=== PATIENT | female | born 1970 | race Caucasian/White ===

== ENCOUNTER → 2016-06-30 | Outpatient (CLI) | payer BC ==
--- NOTE | 2016-07-03 07:37 | MM ---
Reason for exam: screening (asymptomatic). Last mammogram was performed 1 year and 11 months ago. History: Took hormonal contraceptives for 6 years. Taking other hormone. Physical Findings: A clinical breast exam by your physician is recommended on an annual basis and results should be correlated with mammographic findings. MG 3D Screening Mammo W/Cad Bilateral CC and MLO view(s) were taken. Prior study comparison: August 07, 2014, bilateral MG screening mammo w CAD. The breast tissue is heterogeneously dense. This may lower the sensitivity of mammography. Finding: There are typically benign round calcifications in both breasts. There is no discrete abnormality. ASSESSMENT: Benign, BI-RAD 2 RECOMMENDATION: Routine screening mammogram of both breasts in 1 year.
== END | disposition home or self-care (01) ==
LOC: RADMAMWWP 08:58
PROVIDERS: ATTEND Obstetrics & Gynecology
DX: Z12.31 Encounter for screening mammogram for malignant neoplasm of breast (principal)
CPT/HCPCS: 77052; 77063; G0202

== ENCOUNTER → 2016-08-25 | Outpatient (CLI) | payer BC ==
[2016-08-25 10:58] LABS: % Iron Saturation 28.1 % (20-50)
== END | disposition home or self-care (01) ==
LOC: LABWHC1 07:31
PROVIDERS: ATTEND Clinical Nurse Specialist Women's Health
DX: R53.83 Other fatigue (principal); Z86.39 Personal history of other endocrine, nutritional and metabolic disease
CPT/HCPCS: 36415; 82627; 82728; 83540; 83550; 84439; 84443; 84482

== ENCOUNTER → 2016-08-28 | Outpatient (CLI) | payer BC | LOC: LABWHC1 07:45 | PROVIDERS: ATTEND Clinical Nurse Specialist Women's Health | DX: E03.9 Hypothyroidism, unspecified (principal); Z87.898 Personal history of other specified conditions | CPT/HCPCS: 36415; 84482 ==

== ENCOUNTER → 2017-08-02 | Outpatient (CLI) | payer BC ==
--- NOTE | 2017-08-03 10:58 | MM ---
Reason for exam: screening (asymptomatic). Last mammogram was performed 1 year and 1 month ago. History: Took hormonal contraceptives for 6 years. Taking other hormone. Physical Findings: A clinical breast exam by your physician is recommended on an annual basis and results should be correlated with mammographic findings. MG 3D Screening Mammo W/Cad Bilateral CC and MLO view(s) were taken. Prior study comparison: June 30, 2016, bilateral MG 3d screening mammo w/cad. August 07, 2014, bilateral MG screening mammo w CAD. The breast tissue is heterogeneously dense. This may lower the sensitivity of mammography. Finding: There is a 5 mm circumscribed round mass located 5 cm from the nipple in the middle position of the left breast. New finding since June 30, 2016 and August 07, 2014. ASSESSMENT: Incomplete: need additional imaging evaluation, BI-RAD 0 RECOMMENDATION: Ultrasound of the left breast. [facility] will attempt to contact patient to return for ultrasound.
== END | disposition home or self-care (01) ==
LOC: RADMAMWWP 16:25
PROVIDERS: ATTEND Obstetrics & Gynecology
DX: Z12.31 Encounter for screening mammogram for malignant neoplasm of breast (principal)
CPT/HCPCS: 77063; 77067

== ENCOUNTER → 2017-08-06 | Outpatient (CLI) | payer BC ==
--- NOTE | 2017-08-07 07:55 | USB ---
Reason for exam: additional evaluation requested from abnormal screening. History: Took hormonal contraceptives for 6 years. Taking other hormone. Physical Findings: Nurse did not find any significant physical abnormalities on exam. US Breast Workup Limited LT Left breast ultrasound demonstrates a 6 x 4 x 4mm oval, mixed lesion at 11 o'clock. These results were verbally communicated with the patient and result sheet given to the patient on 08/06/17. ASSESSMENT: Probably benign, BI-RAD 3 RECOMMENDATION: Follow-up diagnostic mammogram and ultrasound of the left breast in 6 months.
== END | disposition home or self-care (01) ==
LOC: RADUSWWP 15:33
PROVIDERS: ATTEND Obstetrics & Gynecology
DX: R92.8 Other abnormal and inconclusive findings on diagnostic imaging of breast (principal)

== ENCOUNTER → 2018-03-11 | Outpatient (CLI) | payer BC ==
--- NOTE | 2018-03-11 10:43 | MM ---
Reason for exam: follow-up at short interval from prior study. Last mammogram was performed 7 months ago. History: Took hormonal contraceptives for 6 years. Taking other hormone. Physical Findings: Nurse did not find any significant physical abnormalities on exam. MG 3D Diag Mammo W/Cad LT CC and MLO view(s) were taken of the left breast. Prior study comparison: August 02, 2017, bilateral MG 3d screening mammo w/cad. June 30, 2016, bilateral MG 3d screening mammo w/cad. The breast tissue is heterogeneously dense. This may lower the sensitivity of mammography. The isodense 7mm circumscribed asymmetric density central left CC view just medial to the retroareolar plane is stable for 6 months. These results were verbally communicated with the patient and result sheet given to the patient on 03/11/18. ASSESSMENT: Incomplete: need additional imaging evaluation, BI-RAD 0 RECOMMENDATION: Ultrasound of the left breast.
--- NOTE | 2018-03-11 10:47 | USB ---
Reason for exam: additional evaluation requested from abnormal screening. History: Took hormonal contraceptives for 6 years. Taking other hormone. US Breast LT Left complete breast ultrasound includes all four quadrants, the retroareolar region and axilla. Finding demonstrates no cystic or solid lesion seen. Additional 6 month follow up mammogram recommended. These results were verbally communicated with the patient and result sheet given to the patient on 03/11/18. ASSESSMENT: Probably benign, BI-RAD 3 RECOMMENDATION: Follow-up diagnostic mammogram of both breasts in 6 months. (total 1 year follow up)
== END | disposition home or self-care (01) ==
LOC: RADMAMWWP 07:27
PROVIDERS: ATTEND Obstetrics & Gynecology
DX: R92.8 Other abnormal and inconclusive findings on diagnostic imaging of breast (principal)
CPT/HCPCS: 77061; 77065

== ENCOUNTER → 2018-09-05 | Outpatient (CLI) | payer BC ==
[2018-09-05 17:37] LABS: T4, Free (Free Thyroxine) 1.1 ng/dL (0.80-1.80)
== END | disposition home or self-care (01) ==
LOC: LABWHC1 07:55
PROVIDERS: ATTEND Clinical Nurse Specialist Women's Health
DX: D64.9 Anemia, unspecified (principal); E03.9 Hypothyroidism, unspecified
CPT/HCPCS: 36415; 82728; 84439; 84481; 84482

== ENCOUNTER → 2019-02-06 | Outpatient (CLI) | payer BC ==
--- NOTE | 2019-02-06 09:17 | MM ---
Reason for exam: follow-up at short interval from prior study. Last mammogram was performed 11 months ago. History: Took hormonal contraceptives for 6 years. Taking other hormone. Physical Findings: Nurse did not find any significant physical abnormalities on exam. MG 3D Diag Mammo W/Cad LULY Bilateral CC and MLO view(s) were taken. ML, spot compression CC, and spot compression MLO view(s) were taken of the right breast. Prior study comparison: March 11, 2018, left breast MG 3d diag mammo w/cad LT. August 02, 2017, bilateral MG 3d screening mammo w/cad. The breast tissue is heterogeneously dense. This may lower the sensitivity of mammography. There are benign appearing bilateral calcifications. Right upper outer quadrant focal asymmetry at middle depth improves on spot CC and true lateral but subtly persists on spot MLO 7-8cm from nipple. Left medial asymmetry is stable. These results were verbally communicated with the patient and result sheet given to the patient on 02/06/19. ASSESSMENT: Incomplete: need additional imaging evaluation, BI-RAD 0 RECOMMENDATION: Ultrasound of the right breast.
--- NOTE | 2019-02-06 09:20 | USB ---
Reason for exam: additional evaluation requested from abnormal screening. History: Took hormonal contraceptives for 6 years. Taking other hormone. US Breast Limited RT Right limited breast ultrasound including focal area of concern, retroareolar and axilla demonstrates a 0.3 x 0.3 x 0.4cm lesion too small to characterize at 11 o'clock, correlates to mammographic finding embedded in dense breast tissue. These results were verbally communicated with the patient and result sheet given to the patient on 02/06/19. ASSESSMENT: Suspicious, BI-RAD 4 RECOMMENDATION: Ultrasound core biopsy of the right breast. Called Dr. Vieira with mammographic findings and has scheduled an appointment for the patient for 02/26/19 at 11:[address] Spring. Biopsy scheduled for 02/19/19 at 12:20. PRELIMINARY REPORT CALLED AND FAXED TO DR. SPRING ON 02/06/19.
== END | disposition home or self-care (01) ==
LOC: RADMAMWWP 07:03
PROVIDERS: ATTEND Surgery
DX: R92.8 Other abnormal and inconclusive findings on diagnostic imaging of breast (principal)
CPT/HCPCS: 77062; 77066

== ENCOUNTER → 2019-02-19 | Day surgery (SDC) | payer BC ==
[2019-02-19 10:41] VITALS: BMI 29.8
[2019-02-19 12:22] VITALS: BP 123/81; PULSE 67; RESP 16; TEMP 98.7
--- NOTE | 2019-02-19 20:49 | USB ---
EXAMINATION TYPE: US biopsy breast VAD RT DATE OF EXAM: 02/19/2019 CLINICAL HISTORY: A. TECHNIQUE: Ultrasound guided core biopsy of breast. COMPARISON: NONE FINDINGS: The procedure of ultrasound guided core biopsy was explained to the patient. Benefits, alt ernatives, and risks were discussed. An informed consent was then obtained. A timeout was performed. The patient was placed in supine positioning for imaging and for the procedure. The overlying skin w as prepped and draped in usual sterile fashion. Lidocaine was used as anesthetic into the skin and s ubcutaneous tissue up to area of concern in the right breast. A small skin syed was made with surgic al scalpel. Under ultrasound guidance, a 12-gauge vacuum assisted biopsy gun device was used to obtain several co re samples. Following this, a biopsy clip was left in lesion. The patient tolerated the procedure well without any immediate complication. Post procedure mammogram: Ribbon clip is within the 12:00 position right breast IMPRESSION: 1. Successful ultrasound-guided core biopsy right breast. Recommendations: 1. Recommendations are pending pathology results.
== END ==
LOC: RADUSWWP 10:07
PROVIDERS: ATTEND Surgery
DX: N60.11 Diffuse cystic mastopathy of right breast (principal); N60.21 Fibroadenosis of right breast; R92.8 Other abnormal and inconclusive findings on diagnostic imaging of breast; Z88.2 Allergy status to sulfonamides
CPT/HCPCS: 88305; 77065; 19083; A4648; J2001

== ENCOUNTER → 2019-02-27 | Outpatient (CLI) | payer BC ==
[2019-02-27 07:30] VITALS: BP 128/80; PULSE 99; RESP 18; TEMP 98.2; BMI 29.8
--- NOTE | 2019-02-27 08:03 | P.GSHP ---
History of Present Illness H&P Date: 02/27/19 Chief Complaint: abnormal mammogram Berry is a 48-year-old [place] [address]. This was bilateral and it was noted in the right upper outer quadrant there was some focal asymmetry. She subsequently underwent an ultrasound which revealed a 0.3 x 0.4 cm lesion too small to characterize. Ultrasound core biopsy was recommended. The patient underwent an ultrasound-guided core biopsy of this area and 820 819. This was felt to be successful and pathology revealed fibrocystic changes with a portion of cyst wall. This and has had no complications following the biopsy. She drinks coffee 4 cups/day. She does drink other caffeinated beverages. She eats chocolate frequently. She does not smoke and is not exposed to secondhand smoke. Family History: mother: colon cancer at 65 maternal grandmother: uterine and rectal cancer sister: at 52 of heart disease Hormonal History: menarche: 14 breast fed: yes, age at first : 28 periods: irregular BCP: 6 years hormones: none Past surgical history: 1. Cyst on the wrist and knee Medical history: 1. Hypothyroid 2. GI gluten free diet Social History: smoke: none alcohol: rare drugs: none - Constitutional Constitutional: Reports sweats - EENT Eyes: denies blurred vision, denies pain Ears: deny: decreased hearing, tinnitus Ears, nose, mouth and throat: Denies headache, Denies sore throat - Breasts Breasts: bilateral: as per HPI - Cardiovascular Cardiovascular: Denies chest pain, Denies shortness of breath - Respiratory Respiratory: Denies cough, Denies 7 - Gastrointestinal Comment: gluten free diet - Genitourinary (Female) Genitourinary: Denies dysuria, Denies hematuria - Menstruation Menstruation: Reports menses variable - Musculoskeletal Musculoskeletal: Denies myalgias - Integumentary Integumentary: Denies pruritus, Denies rash - Neurological Neurological: Denies numbness, Denies weakness - Psychiatric Psychiatric: Denies anxiety, Denies depression - Endocrine Comment: hypothyroid Endocrine: Reports fatigue, Reports weight change - Hematologic/Lymphatic Comment: none - Allergic/Immunologic Allergic/Immunologic: Reports as per HPI, Reports seasonal allergies Past Medical History Past Medical History: GERD/Reflux, Thyroid Disorder History of Any Multi-Drug Resistant Organisms: None Reported Past Surgical History: No Surgical Hx Reported Additional Past Surgical History / Comment(s): cyst on right wrist and cyst on right knee removed as an adolescent Past Anesthesia/Blood Transfusion Reactions: No Reported Reaction Past Psychological History: No Psychological Hx Reported Additional Psychological History / Comment(s): pt very anxious about procedure Smoking Status: Never smoker Past Alcohol Use History: None Reported Past Drug Use History: None Reported - Past Family History Father Additional Family Medical History / Comment(s): "past from heart issues" Mother Family Medical History: Cancer Additional Family Medical History / Comment(s): "past from colon cancer" Sister(s) Additional Family Medical History / Comment(s): "past from heart issues" Medications and Allergies Home Medications Medication Instructions Recorded Confirmed Type Thyroid,Pork [[employer]inator Thyroid] 60 mg PO HS 02/07/19 02/27/19 History Thyroid,Pork [[employer] Coordinator Thyroid] 90 mg PO QAM 02/07/19 02/27/19 History Allergies Allergy/AdvReac Type Severity Reaction Status Date / Time sulfamethoxazole AdvReac Abdominal Verified 02/27/19 07:20 [From Bactrim] Pain trimethoprim [From Bactrim] AdvReac Abdominal Verified 02/27/19 07:20 Pain Surgical - Exam Vital Signs Temp Pulse Resp BP Pulse Ox 98.2 F 99 18 128/80 98 02/27/19 07:21 02/27/19 07:21 02/27/19 07:21 02/27/19 07:21 02/27/19 07:21 BMI 29.9 - General well developed, well nourished, no distress - Eyes normal ocular movement - ENT no hearing loss, no congestion - Neck no masses, trachea midline - Respiratory normal respiratory effort, clear to auscultation - Cardiovascular Rhythm: regular Heart Sounds: normal: S1, S2 - Abdomen Abdomen: soft, non tender, no guarding, no rigid, no rebound - Integumentary no rash, no abnormal pigmentation - Neurologic no disoriented, no combative - Musculoskeletal normal gait, normal posture - Psychiatric oriented to time, oriented to person, oriented to place, speech is normal, memory intact Breast examination: Right breast: Multi-positional exam reveals some ecchymosis and in increased nodularity near the area where she had a core biopsy this is most likely consistent with a hematoma is approximately 1.5 x 1 cm in size it is tender to palpation Right axilla: No adenopathy of concern Under the right breast appears to be a small amount of fungal infection Left breast: multi- positional exam no dominant masses or nodules of concern, fibrocystic changes Left axilla: No adenopathy of concern, some mild skin excoriation probable fungal in nature Results Mammogram and ultrasound results reviewed Assessment and Plan Assessment: Impression: 1. Abnormal mammogram right breast 2. Abnormal ultrasound right breast 3. Fibrocystic breast changes 4. Nodule right breast most likely hematoma 5. Skin changes probable fungal infection under right breast and left axilla 6. Hypothyroid 7. Reflux 8. Gluten intolerance Plan: 1. Repeat right breast mammogram and ultrasound in 6 months 2. Repeat right breast exam in 6 months to assure that hematoma is resolving 3. Nystatin for fungal infection 4. Medical management of medical conditions CC: Dr. Vieira
== END | disposition home or self-care (01) ==
LOC: WWCWWP 07:07
PROVIDERS: ATTEND Surgery
DX: Z53.9 Procedure and treatment not carried out, unspecified reason (principal)

== ENCOUNTER → 2019-04-04 | Outpatient (CLI) | payer BC ==
[2019-04-04 14:44] VITALS: BP 117/78; PULSE 71; RESP 16; TEMP 98.2; BMI 29.0
--- NOTE | 2019-04-04 15:13 | P.PN ---
Subjective Progress Note Date: 04/04/19 Berry is a 48-year-old [place] [address]. This was bilateral and it was noted in the right upper outer quadrant there was some focal asymmetry. She subsequently underwent an ultrasound which revealed a 0.3 x 0.4 cm lesion too small to characterize. Ultrasound core biopsy was recommended. The patient underwent an ultrasound-guided core biopsy of this area and 820 819. This was felt to be successful and pathology revealed fibrocystic changes with a portion of cyst wall. This and has had no complications following the biopsy. She drinks coffee 4 cups/day. She does drink other caffeinated beverages. She eats chocolate frequently. She does not smoke and is not exposed to secondhand smoke. [place] [address]. This was felt to be successful and pathology revealed fibrocystic changes with a portion of cyst wall. Postprocedure she developed a hematoma however the patient states that this is decreased at this time. Under postoperative visit she was also noted to have it was believed to be fungal infection under her breast. This has resolved with nystatin usage. She has no complaints related to the area at this time. Family History: mother: colon cancer at 65 maternal grandmother: uterine and rectal cancer sister: at 52 of heart disease Hormonal History: menarche: 14 breast fed: yes, age at first : 28 periods: irregular BCP: 6 years hormones: none Past surgical history: 1. Cyst on the wrist and knee Medical history: 1. Hypothyroid 2. GI gluten free diet Social History: smoke: none alcohol: rare drugs: none - Constitutional Constitutional: Reports sweats - EENT Eyes: denies blurred vision, denies pain Ears: deny: decreased hearing, tinnitus Ears, nose, mouth and throat: Denies headache, Denies sore throat - Breasts Breasts: bilateral: as per HPI - Cardiovascular Cardiovascular: Denies chest pain, Denies shortness of breath - Respiratory Respiratory: Denies cough, Denies 7 - Gastrointestinal Comment: gluten free diet - Genitourinary (Female) Genitourinary: Denies dysuria, Denies hematuria - Menstruation Menstruation: Reports menses variable - Musculoskeletal Musculoskeletal: Denies myalgias - Integumentary Integumentary: Denies pruritus, Denies rash - Neurological Neurological: Denies numbness, Denies weakness - Psychiatric Psychiatric: Denies anxiety, Denies depression - Endocrine Comment: hypothyroid Endocrine: Reports fatigue, Reports weight change - Hematologic/Lymphatic Comment: none - Allergic/Immunologic Allergic/Immunologic: Reports as per HPI, Reports seasonal allergies Past Medical History Past Medical History: GERD/Reflux, Thyroid Disorder History of Any Multi-Drug Resistant Organisms: None Reported Past Surgical History: No Surgical Hx Reported Additional Past Surgical History / Comment(s): cyst on right wrist and cyst on right knee removed as an adolescent Past Anesthesia/Blood Transfusion Reactions: No Reported Reaction Past Psychological History: No Psychological Hx Reported Additional Psychological History / Comment(s): pt very anxious about procedure Smoking Status: Never smoker Past Alcohol Use History: None Reported Past Drug Use History: None Reported Objective - Vital Signs Vital signs: Vital Signs Temp 98.2 F 04/04/19 14:38 Pulse 71 04/04/19 14:38 Resp 16 04/04/19 14:38 BP 117/78 04/04/19 14:38 Pulse Ox 96 04/04/19 14:38 Intake & Output 04/03/19 04/04/19 04/04/19 18:59 06:59 18:59 Weight 81.647 kg - Exam BMI 29.1 - Constitutional General appearance: Present: average body habitus - EENT Eyes: Present: EOMI ENT: Present: hearing grossly normal - Neck Neck: Present: normal ROM - Respiratory Respiratory: bilateral: CTA - Cardiovascular Rhythm: regular Heart sounds: normal: S1, S2 - Integumentary Integumentary: Present: normal turgor - Musculoskeletal Musculoskeletal: Present: gait normal - Psychiatric Psychiatric: Present: A&O x's 3, appropriate affect, intact judgment & insight - Additional findings Additional findings: Right breast: Exam was limited to the exam reveals that the ecchymosis has resolved and the area of increased nodularity to the core biopsy has resolved as well the tenderness to palpation is also decreased Resolution of prior fungal infection on right and left chest wall. Assessment and Plan Assessment: Impression: 1. Patient status post ultrasound-guided core biopsy right breast/benign findings 2. Hematoma after ultrasound resolved 3. Fibrocystic breast changes 4. Fungal infection largely resolved with nystatin 5. Hypothyroid 6. Reflux 7. Gluten intolerance Plan: 1. Repeat right breast mammogram and ultrasound in 6 months, patient would prefer to have only ultrasound this is to be reviewed with radiology 2. Follow up here in 6 months 3. Medical management medical conditions CC: Dr. Vieira
== END | disposition home or self-care (01) ==
LOC: WWCWWP 14:16
PROVIDERS: ATTEND Surgery
DX: Z53.9 Procedure and treatment not carried out, unspecified reason (principal)

== ENCOUNTER → 2019-08-22 | Outpatient (CLI) | payer BC ==
[2019-08-22 15:09] VITALS: BP 137/94; PULSE 72; RESP 18; TEMP 97.8
--- NOTE | 2019-08-22 15:24 | P.PN ---
Subjective Progress Note Date: 08/22/19 Principal diagnosis: fibrocystic breast changes Berry is a 48-year-old [place] [address]. This was bilateral and it was noted in the right upper outer quadrant there was some focal asymmetry. She subsequently underwent an ultrasound which revealed a 0.3 x 0.4 cm lesion too small to characterize. Ultrasound core biopsy was recommended. The patient underwent an ultrasound-guided core biopsy of this area and 820 819. This was felt to be successful and pathology revealed fibrocystic changes with a portion of cyst wall. This and has had no complications following the biopsy. She drinks coffee 4 cups/day. She does drink other caffeinated beverages. She eats chocolate frequently. She does not smoke and is not exposed to secondhand smoke. Patient is recently started on Premarin She [place] [address]. This was felt to be successful and pathology revealed fibrocystic changes with a portion of cyst wall. Postprocedure she developed a hematoma however the patient states that this is decreased at this time. At her postoperative visit she was also noted to have it was believed to be fungal infection under her breast. This has resolved with nystatin usage. She has no complaints related to the area at this time. The patient had a repeat right breast ultrasound today, this was reviewed with Dr. Hartley from radiology. The area of concern appears to have completely resolved. The recommendation is for repeat bilateral mammogram in January 2020. The patient recently started on Premarin by a nurse practitioner. She has been having periods, they are regular. Since starting the premarin her breast have been tender. The patient is not having hot flashes or night sweets at this time. Patient herself is not complaining of any masses nodules or nipple discharge in either breast. Family History: mother: colon cancer at 65 maternal grandmother: uterine and rectal cancer sister: at 52 of heart disease Hormonal History: menarche: 14 breast fed: yes, age at first : 28 periods: irregular BCP: 6 years hormones: none Past surgical history: 1. Cyst on the wrist and knee Medical history: 1. Hypothyroid 2. GI gluten free diet Social History: smoke: none alcohol: rare drugs: none - Constitutional Constitutional: Reports sweats - EENT Eyes: denies blurred vision, denies pain Ears: deny: decreased hearing, tinnitus Ears, nose, mouth and throat: Denies headache, Denies sore throat - Breasts Breasts: bilateral: as per HPI - Cardiovascular Cardiovascular: Denies chest pain, Denies shortness of breath - Respiratory Respiratory: Denies cough, - Gastrointestinal Comment: gluten free diet - Genitourinary (Female) Genitourinary: Denies dysuria, Denies hematuria - Menstruation Menstruation: Reports menses variable - Musculoskeletal Musculoskeletal: Denies myalgias - Integumentary Integumentary: Denies pruritus, Denies rash - Neurological Neurological: Denies numbness, Denies weakness - Psychiatric Psychiatric: Denies anxiety, Denies depression - Endocrine Comment: no thyroid or diabetes disease hypothyroid Endocrine: Reports fatigue, Reports weight change - Hematologic/Lymphatic: none Objective - Vital Signs Vital signs: Vital Signs Temp 97.8 F 08/22/19 15:03 Pulse 72 08/22/19 15:03 Resp 18 08/22/19 15:03 BP 137/94 08/22/19 15:03 Pulse Ox 96 08/22/19 15:03 Intake & Output 08/21/19 08/22/19 08/22/19 18:59 06:59 18:59 Weight 90.265 kg - Exam BMI 32.1 - Constitutional General appearance: Present: average body habitus - EENT Eyes: Present: EOMI ENT: Present: hearing grossly normal - Neck Neck: Present: normal ROM - Respiratory Respiratory: bilateral: CTA - Cardiovascular Rhythm: regular Heart sounds: normal: S1, S2 - Integumentary Integumentary: Present: normal turgor - Musculoskeletal Musculoskeletal: Present: gait normal - Psychiatric Psychiatric: Present: A&O x's 3, appropriate affect - Additional findings Additional findings: Breast examination: Inspection: Right breast slightly larger than left breast and no nipple inversion or skin changes of concern Palpation: Right breast: Multi-positional exam no dominant masses or nodules of concern Right axilla: No adenopathy of concern Left breast: Multi-positional exam no dominant masses or nodules of concern Left axilla: No adenopathy of concern Patient with the mild erythema under both breasts slightly greater on the right most likely related to fungal infection Assessment and Plan Assessment: Impression: 1. Fibrocystic breast changes 2. Resolved cystic area of concern in the right breast 3. Patient recently started Premarin we'll follow closely 4. Fungal infection under both breasts 5. Recent right breast ultrasound no lesions of concern Plan: 1. Patient to restart nystatin 2. We have discussed causes of fibrocystic breast changes including caffeine/theophylline/and possible hormone use the patient will consider modification of lifestyle depending on symptoms of fibrocystic disease 3. Bilateral mammogram in January 2020 with examination at that time Cc: Dr. Allen/Dr. Vieira encounter 25 minutes, > 50% of time in planning and counselling Time with Patient: Less than 30
== END | disposition home or self-care (01) ==
LOC: WWCWWP 14:12
PROVIDERS: ATTEND Surgery
DX: Z53.9 Procedure and treatment not carried out, unspecified reason (principal)

== ENCOUNTER → 2019-08-22 | Outpatient (CLI) | payer BC ==
--- NOTE | 2019-08-25 08:35 | USB ---
Reason for exam: follow-up at short interval from prior study. History: Benign US biopsy breast VAD RT of the right breast, February 19, 2019. Took hormonal contraceptives for 6 years. Taking other hormone. Physical Findings: Nurse Summary: all soft, nodular, movable (nurse ts). US Breast Limited RT Technologist: Bri Zambrano Right limited breast ultrasound including focal area of concern, retroareolar and axilla demonstrates no cystic or solid lesion seen. The prior biopsied mass at 11 o'clock is no longer seen, biopsy proven benign cyst. These results were verbally communicated with the patient and result sheet given to the patient on 08/22/19. ASSESSMENT: Benign, BI-RAD 2 RECOMMENDATION: Routine screening mammogram of both breasts in 6 months. Back on schedule for January 2020.
== END | disposition home or self-care (01) ==
LOC: RADUSWWP 14:08
PROVIDERS: ATTEND Surgery
DX: R92.8 Other abnormal and inconclusive findings on diagnostic imaging of breast (principal)

== ENCOUNTER → 2020-02-09 | Outpatient (CLI) | payer BC ==
--- NOTE | 2020-02-09 08:49 | MM ---
Reason for exam: additional evaluation requested from prior study. Last mammogram was performed 1 year ago. History: Benign US biopsy breast VAD RT of the right breast, February 19, 2019. Took hormonal contraceptives for 6 years. Taking other hormone. Physical Findings: Nurse did not find any significant physical abnormalities on exam. MG 3D Diag Mammo W/Cad LULY Bilateral CC and MLO view(s) were taken. LM, spot compression CC, and spot compression CCRL view(s) were taken of the left breast. Prior study comparison: February 19, 2019, right breast MG diagnostic mammo RT wo CAD. February 06, 2019, bilateral MG 3d diag mammo w/cad LULY. August 02, 2017, bilateral MG 3d screening mammo w/cad. The breast tissue is heterogeneously dense. This may lower the sensitivity of mammography. Previous mammotome biopsy in the right breast. Right sided lateral CC view asymmetric densities do not persist on spot compression. Medial nodularity in the central left breast increased in size currently measuring 8mm. It is in the upper inner quadrant 11 o'clock low to isodense. These results were verbally communicated with the patient and result sheet given to the patient on 02/09/20. ASSESSMENT: Incomplete: need additional imaging evaluation, BI-RAD 0 RECOMMENDATION: Ultrasound of the left breast. (10-1 o'clock)
--- NOTE | 2020-02-09 08:51 | USB ---
Reason for exam: additional evaluation requested from abnormal screening. History: Benign US biopsy breast VAD RT of the right breast, February 19, 2019. Took hormonal contraceptives for 6 years. Taking other hormone. US Breast Limited LT Left limited breast ultrasound including focal area of concern, retroareolar and axilla demonstrates a 0.6 x 0.3 x 0.5cm lesion too small to characterize at 11 o'clock, likely cystic and probably corresponds to the mammographic finding. 6 month follow up mammogram recommended. Scanned 9-1 o'clock. These results were verbally communicated with the patient and result sheet given to the patient on 02/09/20. ASSESSMENT: Probably benign, BI-RAD 3 RECOMMENDATION: Follow-up diagnostic mammogram of the left breast in 6 months.
== END | disposition home or self-care (01) ==
LOC: RADMAMWWP 06:59
PROVIDERS: ATTEND Surgery
DX: R92.8 Other abnormal and inconclusive findings on diagnostic imaging of breast (principal)
CPT/HCPCS: 77062; 77066

== ENCOUNTER → 2020-03-25 | Outpatient (CLI) | payer BC ==
[2020-03-25 09:45] VITALS: BP 132/79; PULSE 95; RESP 18; TEMP 97.9
--- NOTE | 2020-03-25 10:28 | P.PN ---
Subjective Progress Note Date: 03/25/20 Principal diagnosis: abnormal left breast ultrasound Berry is a 48-year-old [place] [address]. This was bilateral and it was noted in the right upper outer quadrant there was some focal asymmetry. She subsequently underwent an ultrasound which revealed a 0.3 x 0.4 cm lesion too small to characterize. Ultrasound core biopsy was recommended. The patient [place] [address]. This was felt to be successful and pathology revealed fibrocystic changes with a portion of cyst wall. She had no complications following the biopsy. The patient on 02-09-20 underwent a bilateral mammogram which revealed medial nodularity in the left breast. No lesions of concern in the right breast. She had an ultrasound of the left bresast on 02-09-20 which was Benign BIRAD 3, a 0.6 by 0.3 cm lesion noted in the left breast at 11 OClock and repeat mammogram of the left breast in 6 months recommended. She does not feel anything of concern in either breast. She is not complaining of any nipple discharge or skin changes. She has not had any recent trauma or infection in the breast. [place] [address]. This was felt to be successful and pathology revealed fibrocystic changes with a portion of cyst wall. Postprocedure she developed a hematoma however the patient states that this is decreased at this time. At her postoperative visit she was also noted to have it was believed to be fungal infection under her breast. This has resolved with nystatin usage. She has no complaints related to the area at this time. The patient had a repeat right breast ultrasound today, this was reviewed with Dr. Hartley from radiology. The area of concern appears to have completely resolved. The recommendation is for repeat bilateral mammogram in January 2020. The patient recently started on Premarin by a nurse practitioner. She has been having periods, they are regular. Since starting the premarin her breast have been tender. The patient is not having hot flashes or night sweets at this time. Patient herself is not complaining of any masses nodules or nipple discharge in either breast. She drinks coffee 2-3 cups/day. She does drink other caffeinated beverages occasionally She eats chocolate occasionally She does not smoke and is not exposed to secondhand smoke. Patient is not taking any hormone therapy Family History: mother: colon cancer at 65 maternal grandmother: uterine and rectal cancer sister: at 52 of heart disease Hormonal History: menarche: 14 breast fed: yes, age at first : 28 periods: irregular BCP: 6 years hormones: none Past surgical history: 1. Cyst on the wrist and knee Medical history: 1. Hypothyroid (recall on thyroid medication recently as there was a question as to whether the MP thigh which she was receiving was super potent) 2. GI gluten free diet Social History: smoke: none alcohol: rare drugs: none - Constitutional Constitutional: Reports sweats - EENT Eyes: denies blurred vision, denies pain Ears: deny: decreased hearing, tinnitus Ears, nose, mouth and throat: Denies headache, Denies sore throat - Breasts Breasts: bilateral: as per HPI - Cardiovascular Cardiovascular: Denies chest pain, Denies shortness of breath - Respiratory Respiratory: Denies cough, - Gastrointestinal Comment: gluten free diet Ischemic colitis in November 2019, bleeding - Genitourinary (Female) Genitourinary: Denies dysuria, Denies hematuria - Menstruation Menstruation: Reports menses variable - Musculoskeletal Musculoskeletal: Denies myalgias - Integumentary Integumentary: Denies pruritus, Denies rash - Neurological Neurological: Denies numbness, Denies weakness - Psychiatric Psychiatric: Denies anxiety, Denies depression - Endocrine Comment: no thyroid or diabetes disease hypothyroid Endocrine: Reports fatigue, Reports weight change - Hematologic/Lymphatic: none Objective - Vital Signs Vital signs: Vital Signs Temp 97.9 F 03/25/20 09:41 Pulse 95 03/25/20 09:41 Resp 18 03/25/20 09:41 BP 132/79 03/25/20 09:41 Pulse Ox 100 03/25/20 09:41 Intake & Output 03/24/20 03/25/20 03/25/20 18:59 06:59 18:59 Weight 83.007 kg - Exam BMI 29.5 - Constitutional General appearance: Present: average body habitus - EENT Eyes: Present: EOMI ENT: Present: hearing grossly normal - Neck Neck: Present: normal ROM - Respiratory Respiratory: bilateral: CTA - Cardiovascular Rhythm: regular Heart sounds: normal: S1, S2 - Integumentary Integumentary: Present: normal turgor - Musculoskeletal Musculoskeletal: Present: gait normal - Psychiatric Psychiatric: Present: A&O x's 3, appropriate affect, intact judgment & insight - Additional findings Additional findings: breast exam: BRA 38C inspection: grade 2 ptosis bilateral Palpation: Right breast: Multi-positional exam fibrocystic changes, no dominant masses or nodules of concern Right axilla: No adenopathy of concern Left breast: Multi-positional exam no dominant masses or nodules of concern, fibrocystic changes Left axilla: No adenopathy of concern Assessment and Plan Assessment: Impression: 1. Bilateral fibrocystic breast changes 2. Patient status post right breast ultrasound core biopsy/benign 3. Ultrasound abnormality left breast 02-09-20 4. Hypothyroid Plan: 1. Repeat left breast mammogram 2020, ultrasound left breast at same time 2. Follow-up in July 2020 3. Patient to follow sooner if she notes anything of concern 3. Fibrocystic breast causes including caffeinated products, theophylline, hormonal products, nicotine are discussed with the patient she understands and the only modification lifestyle may be in her caffeine intake she will consider this CC: DR. Allen encounter 25 minutes, > 50 % of time in planning and counselling
== END | disposition home or self-care (01) ==
LOC: WWCWWP 09:34
PROVIDERS: ATTEND Surgery
DX: Z53.9 Procedure and treatment not carried out, unspecified reason (principal)

== ENCOUNTER → 2021-08-22 | Outpatient (CLI) | payer BC ==
--- NOTE | 2021-08-22 09:53 | MM ---
Reason for exam: additional evaluation requested from prior study. Last mammogram was performed 1 year and 6 months ago. History: Benign US biopsy breast VAD RT of the right breast, February 19, 2019. Took hormonal contraceptives for 6 years. Taking other hormone. Physical Findings: Nurse did not find any significant physical abnormalities on exam. MG 3D Diag Mammo W/Cad LULY Bilateral CC and MLO view(s) were taken. Prior study comparison: February 09, 2020, bilateral MG 3d diag mammo w/cad [facility]. February 19, 2019, right breast MG diagnostic mammo RT wo CAD. February 06, 2019, bilateral MG 3d diag mammo w/cad LULY. March 11, 2018, left breast MG 3d diag mammo w/cad LT. The breast tissue is heterogeneously dense. This may lower the sensitivity of mammography. Previous mammotome biopsy in the right breast. No significant new findings when compared with previous films. These results were verbally communicated with the patient and result sheet given to the patient on 08/22/21. ASSESSMENT: Benign, BI-RAD 2 RECOMMENDATION: Routine screening mammogram of both breasts in 1 year.
== END | disposition home or self-care (01) ==
LOC: RADMAMWWP 07:40
PROVIDERS: ATTEND Obstetrics & Gynecology
DX: R92.8 Other abnormal and inconclusive findings on diagnostic imaging of breast (principal)
CPT/HCPCS: 77062; 77066

== ENCOUNTER → 2022-12-11 | Outpatient (CLI) | payer BC ==
--- NOTE | 2022-12-11 08:00 | MM ---
Reason for Exam: Screening (asymptomatic). Last mammogram was performed 1 year(s) and 4 month(s) ago. Patient History: Menarche at age 14. First Full-Term at age 28. Patient has history of breast feeding. Patient used Hormonal Contraceptives for 6 years. 02/19/2019, Benign Core Biopsy on the right side. Paternal aunt had breast cancer. Maternal cousin had breast cancer. Last menstrual period: 10/04/2022 Risk Values: Isabel 5 year model risk: 1.3%. NCI Lifetime model risk: 11.6%. Prior Study Comparison: 02/19/2019 Right Diagnostic Mammogram, [facility]. 02/09/2020 Bilateral Diagnostic Mammogram, [facility]. 08/22/2021 Bilateral Diagnostic Mammogram, [facility]. Tissue Density: The breast tissue is heterogeneously dense. This may lower the sensitivity of mammography. Findings: Analyzed By CAD. Right breast biopsy clip There is no suspicious group of microcalcifications or new suspicious mass in either breast. Overall Assessment: Benign, BI-RAD 2 Management: Screening Mammogram of both breasts in [address] [facility] will attempt to contact patient to return for supplemental views and ultrasound if indicated. Patient should continue monthly self-breast exams. A clinical breast exam by your physician is recommended on an annual basis. This exam should not preclude additional follow-up of suspicious palpable abnormalities. Note on Isabel scores and lifetime risk: 1. A Isabel score greater than 3% is considered moderate risk. If this is the case, consider specialist referral to assess eligibility for a risk reducing agent. 2. If overall lifetime risk for the development of breast cancer is 20% or higher, the patient may qualify for future screening with alternating mammogram and breast MRI. Electronically signed and approved by: Deni Zeng DO
== END | disposition home or self-care (01) ==
LOC: RADMAMWWP 07:17
PROVIDERS: ATTEND Obstetrics & Gynecology
DX: Z12.31 Encounter for screening mammogram for malignant neoplasm of breast (principal); Z80.3 Family history of malignant neoplasm of breast
CPT/HCPCS: 77063; 77067